=== PATIENT | male | born 1950 | race Caucasian/White ===

== ENCOUNTER 2016-08-12 14:16 | Inpatient (IN) | payer OTHER ==
[~2016-08-12] VITALS: Ht 185.4 cm; Wt 107.3 kg
[~2016-08-12 14:16] MED LIST: ACID CONTROL150 MG PO; ADVAIR 100-501 EACH INH; ADVAIR 250-501 EACH IH; ADVAIR 500-501 EACH INH; ALDACTONE 25MG25 MG PO; ALLERGY10 M1 PO; AMITRIPTYLINE H25 MG PO; ASPIR 8181 MG PO; BUMEX 1MG TABLET1 MG PO; CITALOPRAM HBR40 MG PO; CLARITIN 10MG T10 MG PO; CLOPIDOGREL75 MG PO; CORDARONE 200M200 MG PO; DESYREL 50 MG T50 MG PO; DIABETA 2.5 MG2.5 MG PO; DITROPAN 5 MG TA5 MG PO; ELAVIL 25 MG TA25 MG PO; ELIQUIS5 MG PO; FENOFIBRATE54 MG PO; FISH OIL 1,0001 EAC4 PO; FISH OIL 1,0001 EACH PO; FLEXERIL 10 MG10 MG PO; FLONASE 0.05% N16 GM; FLOVENT DISKUS50 MCG INH; GLUCOPHAGE1000 MG PO; GLUCOTROL5 MG PO; HABITROL 14 MG P1 EA TD; HYDROCHLOROTHIA25 MG PO; K-DUR TAB 20 M20 MEQ PO; KENALOG 0.5% CR15 GM EXT; KENALOG CREAM 080 GM TOP; LANOXIN TAB0.125 MG PO; LASIX40 MG PO; LEVAQUIN500 MG PO; LEVAQUIN750 MG PO; LISINOPRIL2.5 MG PO; LOPRESSOR50 MG PO; LORADAMED10 MG PO; LORTAB 5-325 M1 EACH PO; MELOXICAM7.5 MG PO; METFORMIN HCL1000 M1 PO; METFORMIN HCL1000 MG PO; METOPROLOL TART50 MG PO; MIDODRINE HCL2.5 MG PO; NEURONTIN 300300 MG PO; NORCO 10-325 T1 EACH PO; NORVASC 5 MG TAB5 MG PO; NORVASC10 MG PO; OMEPRAZOLE20 M1 PO; OMEPRAZOLE20 MG PO; OMNICEF 300 MG300 MG PO; OXYBUTYNIN CHLOR5 MG PO; PLAVIX 75 MG TA75 MG PO; PRAVACHOL40 MG PO; PREDNISONE10 MG PO; SOTALOL80 MG PO; TOPROL XL 25 MG25 MG PO; TRAZODONE HCL50 MG PO; TYLENOL 325MG325 MG PO; VENTOLIN/PROVE0.5 ML INH; ZESTRIL 40 MG T40 MG PO; ZYVOX 600 MG T600 MG PO; ZYVOX600 MG PO
[2016-08-12 14:51] LABS: HEMOGLOBIN 10.6 gm/dl (14.0-17.5); RED BLOOD COUNT 4.45 M/UL (4.20-5.50); WHITE BLOOD COUNT 7.5 K/UL (4.5-11.0)
[2016-08-14 05:20] LABS: HEMOGLOBIN 9.3 gm/dl (14.0-17.5); RED BLOOD COUNT 3.9 M/UL (4.20-5.50); WHITE BLOOD COUNT 6.1 K/UL (4.5-11.0)
[2016-08-15 04:30] LABS: HEMOGLOBIN 9.8 gm/dl (14.0-17.5); RED BLOOD COUNT 4.18 M/UL (4.20-5.50); WHITE BLOOD COUNT 4.8 K/UL (4.5-11.0)
[2016-08-15] MEDS ORDERED: COREG 3.125M3.125 MG PO (16:27)
[2016-08-15] MEDS ORDERED: PLAVIX 75 MG TA75 MG PO (16:28)
[2016-08-15] MEDS ORDERED: FERROUS SULFAT325 M2 PO (16:30)
[2016-08-15] MEDS ORDERED: SPIRIVA HANDIH18 MCG INH (16:33)
[2016-08-15] MEDS ORDERED: SENOKOT-S TABL1 EACH PO (16:35)
[2016-08-15] MEDS ORDERED: MIRALAX17 GM PO (16:46)
[2016-09-12] MEDS ORDERED: LEVAQUIN500 MG PO (11:10)
[2016-09-12] MEDS ORDERED: NORCO 10-325 T1 EACH PO (11:11)
[2017-02-28] MEDS ORDERED: COUMADIN5 MG PO (18:21)
[2017-02-28] MEDS ORDERED: NEURONTIN 400400 MG PO (18:22)
[2017-02-28] MEDS ORDERED: ENTRESTO PO (19:12)
[2017-02-28] MEDS ORDERED: CELEXA40 MG PO (19:13)
[2017-02-28] MEDS ORDERED: FLOVENT DISKUS50 MCG INH (19:16)
[2017-02-28] MEDS ORDERED: HYDROCHLOROTHIA25 MG PO (19:18)
[2017-02-28] MEDS ORDERED: DOC-Q-LACE100 MG PO (19:21)
[2017-02-28] MEDS ORDERED: FLONASE 0.05% N16 GM (19:22)
[2017-02-28] MEDS ORDERED: ALLEGRA ALLERG180 MG PO (19:30)
[2017-02-28] MEDS ORDERED: RANTIDINE PO (19:32)
[2017-02-28] MEDS ORDERED: ADVAIR 500-501 EACH INH (19:44)
[2017-02-28] MEDS ORDERED: ZANTAC 150 MG150 MG PO (20:04)
[2017-02-28] MEDS ORDERED: VENTOLIN HFA 66.7 GM INH (20:12)
[2017-03-02] MEDS ORDERED: LASIX40 MG PO (15:44)
== END 2016-08-15 17:56 | disposition home or self-care (01) | DRG 291 ==
LOC: ER1 14:16 → ZEROF 17:41 → PROG CARE 08-13 09:45
PROVIDERS: Emergency Medicine; Internal Medicine Nephrology; ADMIT Internal Medicine Infectious Disease
PROC: 5A09357 Assistance with Respiratory Ventilation, Less than 24 Consecutive Hours, Continuous Positive Airway Pressure (ICD-10-PCS; principal; 2016-08-12)
DX: I13.0 Hypertensive heart and chronic kidney disease with heart failure and stage 1 through stage 4 chronic kidney disease, or unspecified chronic kidney disease (principal); I50.23 Acute on chronic systolic (congestive) heart failure; J96.22 Acute and chronic respiratory failure with hypercapnia; J96.21 Acute and chronic respiratory failure with hypoxia; N17.9 Acute kidney failure, unspecified; E87.1 Hypo-osmolality and hyponatremia; N18.3 Chronic kidney disease, stage 3 (moderate); I42.0 Dilated cardiomyopathy; I25.5 Ischemic cardiomyopathy; I25.10 Atherosclerotic heart disease of native coronary artery without angina pectoris; E87.5 Hyperkalemia; I48.0 Paroxysmal atrial fibrillation; J44.9 Chronic obstructive pulmonary disease, unspecified; E11.9 Type 2 diabetes mellitus without complications; D50.9 Iron deficiency anemia, unspecified; E78.5 Hyperlipidemia, unspecified; K21.9 Gastro-esophageal reflux disease without esophagitis; I08.1 Rheumatic disorders of both mitral and tricuspid valves; I87.2 Venous insufficiency (chronic) (peripheral); G89.4 Chronic pain syndrome; F17.210 Nicotine dependence, cigarettes, uncomplicated; K59.00 Constipation, unspecified; E66.9 Obesity, unspecified; Z95.810 Presence of automatic (implantable) cardiac defibrillator; Z95.5 Presence of coronary angioplasty implant and graft; Z87.01 Personal history of pneumonia (recurrent); Z91.14 Patient's other noncompliance with medication regimen; Z99.81 Dependence on supplemental oxygen; Z79.01 Long term (current) use of anticoagulants; Z79.84 Long term (current) use of oral hypoglycemic drugs; Z79.51 Long term (current) use of inhaled steroids; Z79.02 Long term (current) use of antithrombotics/antiplatelets; Z79.891 Long term (current) use of opiate analgesic; Z79.82 Long term (current) use of aspirin; Z79.899 Other long term (current) drug therapy; Z68.31 Body mass index [BMI] 31.0-31.9, adult; Z98.890 Other specified postprocedural states; Z82.3 Family history of stroke; Z80.9 Family history of malignant neoplasm, unspecified
CPT/HCPCS: 36415; 36600; 51702; 70450; 71010; 80048; 80053; 82043; 82570; 82607; 82728; 82746; 82803; 82962; 83540; 83550; 83605; 83880; 84484; 85025; 85027; 87040; 93005; 94640; 94660; 94664; 96374; 96375; 99285; J1040; J1756; J1940; J7040; J7050

== ENCOUNTER → 2016-09-12 | Outpatient (CLI) | payer OTHER ==
[~2016-09-12] VITALS: Ht 185.4 cm; Wt 97.1 kg
[~2016-09-12] MED LIST changes: +ALLEGRA ALLERG180 MG PO; +CELEXA40 MG PO; +COREG 3.125M3.125 MG PO; +COUMADIN5 MG PO; +DOC-Q-LACE100 MG PO; +ENTRESTO PO; +FERROUS SULFAT325 M2 PO; +MIRALAX17 GM PO; +NEURONTIN 400400 MG PO; +RANTIDINE PO; +SENOKOT-S TABL1 EACH PO; +SPIRIVA HANDIH18 MCG INH; +VENTOLIN HFA 66.7 GM INH; +ZANTAC 150 MG150 MG PO
[2016-09-12 08:55] LABS: HEMOGLOBIN 11.2 gm/dl (14.0-17.5); RED BLOOD COUNT 4.48 M/UL (4.20-5.50); WHITE BLOOD COUNT 4.1 K/UL (4.5-11.0)
== END | disposition home or self-care (01) ==
LOC: CATH 07:23
PROVIDERS: Internal Medicine Cardiovascular Disease
DX: Z45.02 Encounter for adjustment and management of automatic implantable cardiac defibrillator (principal); I11.0 Hypertensive heart disease with heart failure; I48.0 Paroxysmal atrial fibrillation; I48.92 Unspecified atrial flutter; I50.22 Chronic systolic (congestive) heart failure; I25.5 Ischemic cardiomyopathy; E11.9 Type 2 diabetes mellitus without complications; I25.2 Old myocardial infarction; F17.210 Nicotine dependence, cigarettes, uncomplicated; E78.5 Hyperlipidemia, unspecified; I25.10 Atherosclerotic heart disease of native coronary artery without angina pectoris; Z79.899 Other long term (current) drug therapy; I47.1 Supraventricular tachycardia; Z95.5 Presence of coronary angioplasty implant and graft; J30.9 Allergic rhinitis, unspecified; F41.9 Anxiety disorder, unspecified; J44.9 Chronic obstructive pulmonary disease, unspecified; M19.90 Unspecified osteoarthritis, unspecified site; J96.90 Respiratory failure, unspecified, unspecified whether with hypoxia or hypercapnia; I87.8 Other specified disorders of veins; Z79.82 Long term (current) use of aspirin; Z79.02 Long term (current) use of antithrombotics/antiplatelets; Z79.891 Long term (current) use of opiate analgesic; Z79.84 Long term (current) use of oral hypoglycemic drugs
CPT/HCPCS: 36415; 80048; 82962; 84436; 84443; 84480; 85025; 93641; C1882; J2250; J3010; J3370; J7040; J7050